=== PATIENT | male | born 1960 | race Caucasian/White ===

== ENCOUNTER 2022-06-17 17:06 | Emergency (ER) | payer OTHER, SELFPAY ==
[2022-06-17 17:10] VITALS: BP 131/75; PULSE 72; RESP 18; TEMP 36.6; O2SAT 94
[2022-06-17] MEDS: diphenhydrAMINE 50 MG/ML VIAL (17:18)
[2022-06-17] MEDS: Famotidine 20 MG/2 ML VIAL (17:19)
[2022-06-17] MEDS: methylPREDNISolone SUCC 125 MG VIAL (17:19)
--- NOTE | 2022-06-17 17:44 | ED.GENADUL_ITS ---
Discharge Plan Disposition Patient Disposition: HOME Condition: Improving Discharge Details Chief Complaint: Allergic Clinical Impression: Bee sting Primary Care Provider: [facility]Local ED Provider: Mega Whatley Home Meds and New Rx's Prescriptions: No Action sulfasalazine 500 mg Tablet 3,000 mg PO TID methotrexate sodium 2.5 mg Tablet 20 mg PO 4-6XD epinephrine [Epi E-Z Pen] 0.3 mg/0.3 mL Auto-Injector 0.3 mg IM PRN PRN Discharge Instructions Instructions: Insect Bite or Sting (ED) Additional Instructions: Please return to the emergency department if you develop any worsening symptoms such as trouble breathing nausea vomiting feeling lightheaded shortness of breath worsening rash or other abnormal symptoms. Please be seen by your primary care physician Medical Decision Making 62-year-old male history of allergic reaction to bee stings presents after being stung by multiple bees this [place], stung on his left arm, felt some respiratory symptoms administer epinephrine in the field before arrival, feeling okay at the moment, does have some itching, respiratory symptoms have not progressed, hemodynamically stable not hypoxic tolerating secretions normal voice no stridor. Likely allergic reaction versus early mild anaphylaxis. Have administered steroids Benadryl famotidine and initiated fluids. Patient is refused Zofran he does not have any GI symptoms at this time. Will observe patient and discharge if improvement of symptoms and stable. 18: 28 patient resting early no acute distress no tachycardia or hypotension no hypoxia. No respiratory distress. Skin feeling much better. Patient endorses that he gave his epinephrine before 4:00 and is requesting to be discharged. [facility]. Given home care instructions and return precautions HPI General Date/Time Provider Initiated Documentation: 06/17/22 17:17 . HPI Narrative: 62-year-old male history of allergic reaction to bee stings presented to being stung on the arm by multiple bees this evening while walking [place], endorse some sensation of respiratory symptomatology; administered epinephrine before arrival. Having some itching currently respiratory symptoms have not progressed. Related Data Home Medications Medication Instructions Recorded Confirmed epinephrine 0.3 mg/0.3 mL 0.3 mg IM PRN PRN 06/17/22 06/17/22 injection, auto-injector methotrexate sodium 2.5 mg tablet 20 mg PO 4-6XD 06/17/22 06/17/22 sulfasalazine 500 mg tablet 3,000 mg PO TID 06/17/22 06/17/22 Allergies Allergy/AdvReac Type Severity Reaction Status Date / Time bee venom protein (honey bee) Allergy Anaphylaxis Unverified 06/17/22 17:23 General Stated Complaint: Allergic RAIN: 2 Review of Systems Narrative: Review of Systems Constitutional: negative Eyes: negative ENT: negative Cardiovascular: negative Respiratory: Allergic reaction Gastrointestinal: negative : negative Musculoskeletal: negative Skin: negative Neurologic: negative Psych: negative PFSH All Active Problems (Updated 06/17/22 @ 18:30 by Mega Whatley MD) Bee sting (Acute) Social History Smoking/Tobacco Use Status: Never Smoking risk assessment performed?: Yes Alcohol Intake: never Drug use: Never Substance use type: does not use Do you feel safe at home: Yes Do you feel safe in your relationship?: Yes Exam Narrative Exam Narrative: Physical Examination General: alert, awake, cooperative, resting comfortably, no acute distress HEENT:Tolerating secretions normal voice no stridor normocephalic, atraumatic; PERRL, EOM intact, conjunctiva normal; no nasal discharge; moist mucous membranes, oral and pharyngeal mucosa normal, tolerating secretions Neck: supple, trachea midline; full ROM Chest: normal to inspection Respiratory: normal respiratory effort, speaking in full sentences, clear to auscultation, no wheezing, rales or rhonchi Cardiac: regular rate, regular rhythm, S1S2 intact, no murmurs rubs or gallops GI: abdomen soft, non-tender, non-distended; no palpable mass or hepatosplenomegaly Skin: no lesions, rashes or trauma appreciated Neuro: AAOx3, normal speech, moving all extremities Extremities: Warm well perfused Psych: Appropriate mood and affect Course Vital Signs Vital signs: Vital Signs Temperature 36.6 C 06/17/22 17:10 Pulse 72 06/17/22 17:10 Respiratory Rate 18 06/17/22 17:10 Blood Pressure 131/75 06/17/22 17:10 Pulse Oximetry 94 06/17/22 17:10 Temperature 36.6 C 06/17/22 17:10 Temperature Source Temporal Artery Scan 06/17/22 17:10 Pulse 72 06/17/22 17:10 Respiratory Rate 18 06/17/22 17:10 Respiratory Effort Non-Labored 06/17/22 17:20 Respiratory Pattern Normal 06/17/22 17:20 Blood Pressure 131/75 06/17/22 17:10 Blood Pressure Position Sitting 06/17/22 17:10 Pulse Oximetry 94 06/17/22 17:10 Oxygen Delivery Method Room Air 06/17/22 17:10 Oxygen Flow Rate 0 06/17/22 17:10
[2022-06-17] MEDS: Normal Saline 1,000 ML 1000 ML IV (17:45)
[2022-06-17 18:48] VITALS: BP 126/80; PULSE 72; RESP 18; TEMP 36.6; O2SAT 99
== END 2022-06-17 18:42 | disposition home or self-care (01) ==
PROVIDERS: Emergency Provider Emergency Medicine
DX: T63.441A Toxic effect of venom of bees, accidental (unintentional), initial encounter (principal)
CPT/HCPCS: 96361; 96374; 99284; J1200; J2930